=== PATIENT | female | born 1990 | race Caucasian/White ===

== ENCOUNTER 2023-07-02 13:21 | Outpatient (CLI) | payer OTHER, SELFPAY ==
[2023-07-02 23:00] LABS: Yeast No Yeast Seen (None Seen)
[2023-07-02 23:01] LABS: Clue Cells <20% Clue Cells Seen (None Seen); Trichomonas No Trichomonas Seen (None Seen)
[2023-07-03 01:18] LABS: Chlamydia DNA Amplified* NOT DETECTED (No Detected); GC DNA Amplified* NOT DETECTED (No Detected)
== END 2023-07-02 13:22 | disposition home or self-care (01) ==
PROVIDERS: Visit Provider Nurse Practitioner Family
DX: N89.8 Other specified noninflammatory disorders of vagina (principal)
CPT/HCPCS: 81015; 87210; 87491; 87591

== ENCOUNTER 2025-02-04 08:29 | Outpatient (CLI) | payer OTHER, SELFPAY | END 2025-02-04 08:30 | disposition home or self-care (01) | LOC: NFLDREF 08:29 | PROVIDERS: Visit Provider Registered Nurse | DX: R45.86 Emotional lability (principal) | CPT/HCPCS: 84443 ==

== ENCOUNTER 2025-02-11 14:42 | Outpatient (CLI) | payer OTHER, SELFPAY ==
--- NOTE | 2025-02-11 15:00 | CRLHL7_ITS ---
For Patients: As a result of the Century Cures Act, medical imaging exams and procedure reports are released immediately into your electronic medical record. You may view this report before your referring provider. If you have questions, please contact your health care provider. INDICATION: hypertrophy of uterus COMPARISON: none TECHNIQUE: 2D carrera scale and color Doppler images were acquired of the pelvis using a transabdominal and transvaginal approach. FINDINGS: Sonographic images demonstrate a normal size and smooth outer contour of the uterus. Uterus measures 9.0 cm in length by 4.0 cm in AP diameter by 5.3 cm in transverse dimension. The myometrium has a normal uniform echotexture. The endometrial lining appears normal and measures 8.1 mm in composite thickness. The right ovary measures 2.5 x 1.4 x 2.1 cm in size and the left ovary measures 2.9 x 2.2 x 2.0 cm. The ovaries demonstrate normal arterial and venous blood flow on color Doppler analysis. There are no suspicious fluid collections within the cul-de-sac. IMPRESSION: Normal pelvic ultrasound. Dictated by Lorenzo Ken MD @ 02/11/2025 3:25:16 PM (Electronically Signed)
== END 2025-02-11 14:43 | disposition home or self-care (01) ==
LOC: US 14:42
PROVIDERS: Visit Provider Registered Nurse
DX: N85.2 Hypertrophy of uterus (principal); R10.2 Pelvic and perineal pain
CPT/HCPCS: 76830; 76856